=== PATIENT | female | born 1935 | race Caucasian/White ===

== ENCOUNTER → 2016-08-20 | Outpatient (CLI) | payer MEDICARE, MEDICAID ==
[~2016-08-20] MED LIST: AMLODIPINE BESYL5 M1 PO; ASPIRIN ADULT L81 M1 PO; ASPIRIN ADULT L81 M4 PO; ATORVASTATIN CA40 M1 PO; ATORVASTATIN PO; BG MC; CARVEDILOL25 M1 PO; CAT0.1 PO; CATAPRES PO; CLONIDINE HCL0.2 MG PO; CLONIDINE HCL0.3 MG PO; CLONIDINE HYDR0.3 M1 PO; COLACE100 MG PO; COR6 PO; DIABETIC T100 MG/5 M; DICLOFENAC SOD75 M1 PO; DICLOFENAC SODI75 MG PO; DILTIAZEM HCL120 M2 PO; ESCITALOPRAM10 M1 PO; GLIMEPIRIDE2 M1 PO; GOOD SENSE ASPI81 M3 PO; HYDRALAZINE HCL25 MG PO; JANUVIA100 MG PO; LANTI SQ; LEADER MELATONIN5 MG; LEADER MELATONIN5 MG PO; LIPITOR40 MG PO; LOSARTAN POTASS1 TA1 PO; LOSARTAN POTASS1 TA6 PO; MAC100 PO; MECLIZINE25 M3 PO; METFORMIN HCL1000 MG PO; METFORMIN1000 MG PO; METFORMIN500 M1 PO; METOPROLOL TART25 M1 PO; NIT0.4 SL; NOR5 PO; NORCO1 TA2 PO; OMEPRAZOLE D/R20 MG PO; OMEPRAZOLE DR20 M1 PO; PANTOPRAZOLE SO40 M1 PO; PRI20 PO; RANEXA500 M1 PO; RANEXA500 M2 PO; RESTORIL15 MG PO; ROBL PO; ROC1PM IV; SIMVASTATIN20 MG PO; SIMVASTATIN40 M1 PO; TRE400 PO; ZOC10 PO; ZOLPIDEM TART5 MG PO
[2016-08-20 12:04] LABS: ALBUMIN 3.7 g/dL (3.4-5.0); ALKALINE PHOSPHATASE 147 U/L (46-116); ALT/SGPT 57 U/L (14-59); AST/SGOT 20 U/L (15-37); BILIRUBIN TOTAL 1.1 mg/dL (0.20-1.00); CALCIUM 9.1 mg/dL (8.5-10.1); CARBON DIOXIDE 27.9 mmol/L (21-32); CHLORIDE SERUM 94 mmol/L (98-107); CREATININE SERUM 1.2 mg/dL (0.6-1.0); GLUCOSE SERUM 133 mg/dL (74-106); POTASSIUM SERUM 4.8 mmol/L (3.5-5.1); SODIUM SERUM 130 mmol/L (136-145); TOTAL PROTEIN, SERUM 7.2 g/dL (6.4-8.2)
== END | disposition home or self-care (01) ==
LOC: LB 10:55
DX: I10 Essential (primary) hypertension (principal); D64.89 Other specified anemias; E11.65 Type 2 diabetes mellitus with hyperglycemia; N18.3 Chronic kidney disease, stage 3 (moderate)

== ENCOUNTER → 2016-08-28 | Outpatient (CLI) | payer MEDICARE, MEDICAID ==
[2016-08-28 12:18] LABS: ALBUMIN 3.4 g/dL (3.4-5.0); ALKALINE PHOSPHATASE 181 U/L (46-116); ALT/SGPT 78 U/L (14-59); AST/SGOT 35 U/L (15-37); BILIRUBIN TOTAL 0.81 mg/dL (0.20-1.00); CALCIUM 9.1 mg/dL (8.5-10.1); CARBON DIOXIDE 30.5 mmol/L (21-32); CHLORIDE SERUM 102 mmol/L (98-107); CREATININE SERUM 1.2 mg/dL (0.6-1.0); GLUCOSE SERUM 74 mg/dL (74-106); POTASSIUM SERUM 4.9 mmol/L (3.5-5.1); SODIUM SERUM 138 mmol/L (136-145); TOTAL PROTEIN, SERUM 6.7 g/dL (6.4-8.2)
== END | disposition home or self-care (01) ==
LOC: LB 11:09
DX: I10 Essential (primary) hypertension (principal); E11.65 Type 2 diabetes mellitus with hyperglycemia; N18.3 Chronic kidney disease, stage 3 (moderate)

== ENCOUNTER 2016-10-06 09:39 | Inpatient (IN) | payer OTHER, MEDICAID ==
[~2016-10-06] VITALS: Ht 157.5 cm; Wt 70.8 kg
[2016-10-06 10:14] LABS: BASOPHIL % 0.3 % (0-2); PLATELET COUNT 186 x10^3mcL (130-400)
[2016-10-06 10:38] LABS: RED CELL DISTRIBUTION WIDTH 14.6 % (11.5-14.5)
[2016-10-06 10:43] LABS: CALCIUM 8.6 mg/dL (8.5-10.1); CARBON DIOXIDE 28.6 mmol/L (21-32); CHLORIDE SERUM 105 mmol/L (98-107); CREATININE SERUM 1.3 mg/dL (0.6-1.0); GLUCOSE SERUM 138 mg/dL (74-106); POTASSIUM SERUM 4.9 mmol/L (3.5-5.1); SODIUM SERUM 140 mmol/L (136-145)
[2016-10-06 10:47] LABS: ALKALINE PHOSPHATASE 126 U/L (46-116); ALT/SGPT 41 U/L (14-59); AST/SGOT 26 U/L (15-37); BILIRUBIN TOTAL 0.75 mg/dL (0.20-1.00); TOTAL PROTEIN, SERUM 7.2 g/dL (6.4-8.2)
[2016-10-06 10:49] LABS: ALBUMIN 3.2 g/dL (3.4-5.0)
[2016-10-06 13:08] LABS: T3 TOTAL 0.78 ng/mL
[2016-10-06 13:33] VITALS: BP 155/83
[2016-10-06 13:43] LABS: CHOLESTEROL/HDL RATIO 4.3; MAGNESIUM 1.9 mg/dL (1.8-2.4); PHOSPHOROUS 3.9 mg/dL (2.5-4.9)
[2016-10-06 13:51] LABS: FREE T4 1.09 ng/dL (0.76-1.46); FREE THYROXINE INDEX 2.9 ug/dL (1.4-4.5); T4(THYROXINE) 8.2 ug/dL (4.7-13.3)
[2016-10-06 15:00] VITALS: BP 141/60
[2016-10-06 18:17] VITALS: BP 175/51
[2016-10-06 21:56] VITALS: BP 175/81
[2016-10-07 00:40] VITALS: BP 126/45
[2016-10-07 05:43] VITALS: BP 151/55
[2016-10-07 06:21] LABS: CALCIUM 8.7 mg/dL (8.5-10.1); CARBON DIOXIDE 30.5 mmol/L (21-32); CHLORIDE SERUM 102 mmol/L (98-107); CREATININE SERUM 1.3 mg/dL (0.6-1.0); GLUCOSE SERUM 109 mg/dL (74-106); POTASSIUM SERUM 4.4 mmol/L (3.5-5.1); SODIUM SERUM 139 mmol/L (136-145)
[2016-10-07 06:57] LABS: BASOPHIL % 0.3 % (0-2); PLATELET COUNT 191 x10^3mcL (130-400); RED BLOOD CELLS 2.74 M/mm3 (4.10-5.10); RED CELL DISTRIBUTION WIDTH 14.9 % (11.5-14.5)
[2016-10-07 07:40] LABS: IRON 76 ug/dL (50-170); TOTAL IRON BINDING CAPACITY 263 ug/dL (250-450)
[2016-10-07 07:55] LABS: microscopic required? NO
[2016-10-07 08:37] LABS: urine erythrocyte NEGATIVE (NEGATIVE)
[2016-10-07 10:30] VITALS: BP 148/45
[2016-10-07 15:05] VITALS: BP 130/39
[2016-10-07 17:13] VITALS: BP 134/41
[2016-10-07 22:09] VITALS: BP 158/57
[2016-10-08 06:10] VITALS: BP 140/63
[2016-10-08 06:53] LABS: BASOPHIL % 0.3 % (0-2); PLATELET COUNT 196 x10^3mcL (130-400); RED CELL DISTRIBUTION WIDTH 14.5 % (11.5-14.5)
[2016-10-08 07:40] LABS: CARBON DIOXIDE 30.4 mmol/L (21-32); CHLORIDE SERUM 95 mmol/L (98-107); GLUCOSE SERUM 159 mg/dL (74-106); POTASSIUM SERUM 4.3 mmol/L (3.5-5.1); SODIUM SERUM 133 mmol/L (136-145)
[2016-10-08 07:41] LABS: CALCIUM 8.6 mg/dL (8.5-10.1); CREATININE SERUM 1.7 mg/dL (0.6-1.0)
[2016-10-08 09:51] VITALS: BP 159/55
[2016-10-08] MEDS ORDERED: LEVAQUIN750 MG PO (12:51)
[2016-10-08] MEDS ORDERED: CLINDAMYCIN HC300 MG PO (12:51)
[2016-10-08] MEDS ORDERED: LAC PO (12:52)
[2016-10-08] MEDS ORDERED: ECO81 PO (12:53)
[2016-10-08 13:35] VITALS: BP 96/45
== END 2016-10-08 14:30 | disposition home or self-care (01) | DRG 177 ==
LOC: ED 09:39 → DU 12:01
PROVIDERS: ADMIT Family Medicine
DX: J69.0 Pneumonitis due to inhalation of food and vomit (principal); I50.43 Acute on chronic combined systolic (congestive) and diastolic (congestive) heart failure; I42.9 Cardiomyopathy, unspecified; E44.0 Moderate protein-calorie malnutrition; I11.0 Hypertensive heart disease with heart failure; E11.51 Type 2 diabetes mellitus with diabetic peripheral angiopathy without gangrene; E11.65 Type 2 diabetes mellitus with hyperglycemia; K21.9 Gastro-esophageal reflux disease without esophagitis; I35.0 Nonrheumatic aortic (valve) stenosis; R91.1 Solitary pulmonary nodule; G47.00 Insomnia, unspecified; G47.30 Sleep apnea, unspecified; D64.9 Anemia, unspecified; E78.5 Hyperlipidemia, unspecified; M19.90 Unspecified osteoarthritis, unspecified site; M62.50 Muscle wasting and atrophy, not elsewhere classified, unspecified site; I25.2 Old myocardial infarction; Z95.0 Presence of cardiac pacemaker; Z79.84 Long term (current) use of oral hypoglycemic drugs
CPT/HCPCS: 36600; 82962; 83880; 84439; 94150; 97110-GP; 97116-GP; 97530-GP; C9113; J0360; J1885; J1940; J2543; J7030; J7620; Q0092; Q9967

== ENCOUNTER 2016-10-29 22:03 | Inpatient (IN) | payer OTHER, MEDICAID ==
[~2016-10-29] VITALS: Ht 162.6 cm; Wt 64.2 kg
[~2016-10-29 22:03] MED LIST changes: +CLINDAMYCIN HC300 MG PO; +ECO81 PO; +LAC PO; +LEVAQUIN750 MG PO
[2016-10-29 23:09] LABS: BASOPHIL % 0.4 % (0-2); CALCIUM 9.3 mg/dL (8.5-10.1); CARBON DIOXIDE 31.6 mmol/L (21-32); CHLORIDE SERUM 101 mmol/L (98-107); CREATININE SERUM 1.4 mg/dL (0.6-1.0); GLUCOSE SERUM 246 mg/dL (74-106); PLATELET COUNT 240 x10^3mcL (130-400); POTASSIUM SERUM 4.4 mmol/L (3.5-5.1); SODIUM SERUM 138 mmol/L (136-145)
[2016-10-29 23:10] LABS: RED CELL DISTRIBUTION WIDTH 15.5 % (11.5-14.5)
[2016-10-29 23:24] LABS: CK-MB 1.7 ng/mL (0-3.6)
[2016-10-29 23:27] LABS: ALKALINE PHOSPHATASE 152 U/L (46-116); ALT/SGPT 32 U/L (14-59); AST/SGOT 22 U/L (15-37); BILIRUBIN TOTAL 0.5 mg/dL (0.20-1.00)
[2016-10-29 23:28] LABS: TOTAL PROTEIN, SERUM 8.3 g/dL (6.4-8.2)
[2016-10-29] MEDS ORDERED: METFORMIN HYD1000 M2 PO (23:42)
[2016-10-29] MEDS ORDERED: GOOD SENSE OMEP20 MG PO (23:42)
[2016-10-29] MEDS ORDERED: CLONAZEPAM2 MG PO (23:43)
[2016-10-29] MEDS ORDERED: TAZTIA XT120 M1 PO (23:43)
[2016-10-29] MEDS ORDERED: RANITIDINE HYD300 MG PO (23:44)
[2016-10-29] MEDS ORDERED: ASPIR 8181 MG PO (23:44)
[2016-10-29] MEDS ORDERED: GLIMEPIRIDE4 M1 PO (23:45)
[2016-10-29] MEDS ORDERED: NITROSTAT0.3 MG SL (23:46)
[2016-10-30] VITALS (8 sets, daily range): BP systolic 99–186; BP diastolic 55–104
[2016-10-30 01:05] LABS: UA SPECIFIC GRAVITY >=1.030 (1.005-1.035); microscopic required? YES; urine erythrocyte NEGATIVE (NEGATIVE)
[2016-10-30 01:23] LABS: MAGNESIUM 1.9 mg/dL (1.8-2.4); PHOSPHOROUS 4.9 mg/dL (2.5-4.9)
[2016-10-30 01:24] LABS: CHOLESTEROL/HDL RATIO 3.6
[2016-10-30 01:29] LABS: FREE T4 1.12 ng/dL (0.76-1.46); T4(THYROXINE) 8.6 ug/dL (4.7-13.3)
[2016-10-30 02:17] LABS: T3 TOTAL 0.95 ng/mL
[2016-10-30 07:11] LABS: BASOPHIL % 0.3 % (0-2); PLATELET COUNT 229 x10^3mcL (130-400)
[2016-10-30 07:12] LABS: RED CELL DISTRIBUTION WIDTH 15.4 % (11.5-14.5)
[2016-10-30 07:13] LABS: CALCIUM 8.7 mg/dL (8.5-10.1); CARBON DIOXIDE 28.5 mmol/L (21-32); CHLORIDE SERUM 102 mmol/L (98-107); CREATININE SERUM 1.6 mg/dL (0.6-1.0); GLUCOSE SERUM 233 mg/dL (74-106); SODIUM SERUM 140 mmol/L (136-145)
[2016-10-30 07:49] LABS: POTASSIUM SERUM 6.7 mmol/L (3.5-5.1)
[2016-10-30 21:10] LABS: CALCIUM 8.9 mg/dL (8.5-10.1); CARBON DIOXIDE 27.7 mmol/L (21-32); CHLORIDE SERUM 98 mmol/L (98-107); CREATININE SERUM 1.9 mg/dL (0.6-1.0); GLUCOSE SERUM 231 mg/dL (74-106); POTASSIUM SERUM 4.8 mmol/L (3.5-5.1); SODIUM SERUM 136 mmol/L (136-145)
[2016-10-31 04:37] LABS: BASOPHIL % 0.1 % (0-2); PLATELET COUNT 182 x10^3mcL (130-400)
[2016-10-31 04:39] LABS: RED CELL DISTRIBUTION WIDTH 15.4 % (11.5-14.5)
[2016-10-31 04:47] LABS: CALCIUM 8.9 mg/dL (8.5-10.1); CARBON DIOXIDE 25.8 mmol/L (21-32); CHLORIDE SERUM 98 mmol/L (98-107); CREATININE SERUM 1.8 mg/dL (0.6-1.0); GLUCOSE SERUM 176 mg/dL (74-106); MAGNESIUM 1.8 mg/dL (1.8-2.4); PHOSPHOROUS 4.9 mg/dL (2.5-4.9); POTASSIUM SERUM 4.4 mmol/L (3.5-5.1); SODIUM SERUM 135 mmol/L (136-145)
[2016-10-31 05:14] VITALS: BP 105/71
[2016-10-31 05:33] LABS: RED BLOOD CELLS 3.12 M/mm3 (4.10-5.10)
[2016-10-31 05:42] LABS: IRON 48 ug/dL (50-170); TOTAL IRON BINDING CAPACITY 369 ug/dL (250-450)
[2016-10-31 09:26] VITALS: BP 138/59
[2016-10-31 13:48] VITALS: BP 165/63
[2016-10-31 16:25] VITALS: BP 132/88
[2016-10-31 21:26] VITALS: BP 157/76
[2016-11-01 05:23] VITALS: BP 149/57
[2016-11-01 08:08] VITALS: BP 149/58
[2016-11-01 08:36] LABS: BASOPHIL % 1.1 % (0-2); PLATELET COUNT 182 x10^3mcL (130-400); RED CELL DISTRIBUTION WIDTH 14.4 % (11.5-14.5)
[2016-11-01 08:53] LABS: CALCIUM 8.5 mg/dL (8.5-10.1); CARBON DIOXIDE 26.5 mmol/L (21-32); CHLORIDE SERUM 97 mmol/L (98-107); CREATININE SERUM 1.5 mg/dL (0.6-1.0); GLUCOSE SERUM 228 mg/dL (74-106); POTASSIUM SERUM 3.9 mmol/L (3.5-5.1); SODIUM SERUM 133 mmol/L (136-145)
[2016-11-01 10:09] VITALS: BP 149/58
[2016-11-01] MEDS ORDERED: METOPROLOL TART25 M1 PO (10:23)
[2016-11-01] MEDS ORDERED: NIT0.4 SL (10:23)
[2016-11-01] MEDS ORDERED: APR20I IV (10:26)
[2016-11-01] MEDS ORDERED: CLOPIDOGREL75 M1 PO (10:27)
[2016-11-01] MEDS ORDERED: CYCLOBENZAPRINE5 MG PO (10:28)
[2016-11-01] MEDS ORDERED: FERG PO (10:28)
[2016-11-01] MEDS ORDERED: GLIMEPIRIDE2 M1 PO (10:29)
[2016-11-01] MEDS ORDERED: PROTONIX40 MG/Pac1 PO (10:29)
[2016-11-01] MEDS ORDERED: LEVEMIR100 U/M1 SQ (10:29)
[2016-11-01] MEDS ORDERED: LAC PO (10:31)
[2016-11-01] MEDS ORDERED: ZOS3PM IV (10:32)
[2016-11-01] MEDS ORDERED: MYLANTA II/MAAL30 M1 PO (10:33)
[2016-11-01] MEDS ORDERED: ZOFI IV (10:34)
[2016-11-01] MEDS ORDERED: COL100 PO (10:34)
[2016-11-01] MEDS ORDERED: CEPACOL SORE TH1 LO4 MM (10:35)
[2016-11-01] MEDS ORDERED: ROBDML PO (10:38)
[2016-11-01] MEDS ORDERED: CARCD180 PO (10:40)
[2016-11-01] MEDS ORDERED: ZES5 PO (10:42)
[2016-11-01] MEDS ORDERED: APR25 PO (10:43)
[2016-11-01] MEDS ORDERED: RAN500A PO (10:44)
[2016-11-01] MEDS ORDERED: ATORVASTATIN CA40 M1 PO (10:44)
[2016-11-01 10:55] VITALS: BP 150/69
== END 2016-11-01 11:43 | disposition short-term general hospital (02) | DRG 871 ==
LOC: ED 22:03 → DU 23:56
PROVIDERS: Emergency Medicine; Family Medicine; ADMIT Family Medicine
DX: A41.9 Sepsis, unspecified organism (principal); J69.0 Pneumonitis due to inhalation of food and vomit; N17.0 Acute kidney failure with tubular necrosis; J96.00 Acute respiratory failure, unspecified whether with hypoxia or hypercapnia; I21.4 Non-ST elevation (NSTEMI) myocardial infarction; I42.9 Cardiomyopathy, unspecified; J44.1 Chronic obstructive pulmonary disease with (acute) exacerbation; N39.0 Urinary tract infection, site not specified; R65.20 Severe sepsis without septic shock; K21.9 Gastro-esophageal reflux disease without esophagitis; E11.51 Type 2 diabetes mellitus with diabetic peripheral angiopathy without gangrene; E11.65 Type 2 diabetes mellitus with hyperglycemia; G47.00 Insomnia, unspecified; I35.0 Nonrheumatic aortic (valve) stenosis; I10 Essential (primary) hypertension; E02 Subclinical iodine-deficiency hypothyroidism; M19.90 Unspecified osteoarthritis, unspecified site; F41.1 Generalized anxiety disorder; Z95.0 Presence of cardiac pacemaker; Z79.82 Long term (current) use of aspirin; Z79.84 Long term (current) use of oral hypoglycemic drugs; Z86.73 Personal history of transient ischemic attack (TIA), and cerebral infarction without residual deficits
CPT/HCPCS: 36600; 82962; 83880; 84439; 85378; 94150; J1170; J1644; J1815; J1885; J1956; J2060; J2405; J2543; J2920; J2930; J3010; J3490; J7040; J7042; J7620